=== PATIENT | male | born 1975 | race Caucasian/White ===

== ENCOUNTER 2016-07-18 11:19 | Emergency (ER) | payer BC ==
--- NOTE | 2016-07-18 11:21 | EDM.PDOC ---
ED HPI GENERAL MEDICAL PROBLEM - General Stated Complaint: SICK(WEAK) Time Seen by Provider: 07/18/16 11:40 Source of Information: Reports: Patient History Limitations: Reports: No limitations - History of Present Illness INITIAL COMMENTS - FREE TEXT/NARRATIVE: HISTORY AND PHYSICAL: History of present illness: [41-year-old male with no significant past medical history now complaining of dry cough and cold symptoms as well as bodyache. Patient came to the emergency department referred to dizziness and room spinning which is worse with movement. He has never had a history of vertigo nor does he take medication for this no nausea vomiting or diarrhea no fevers chills sweats or shaking chills. No headache or stiff neck Past medical history: As per history of present illness and as reviewed below otherwise noncontributory. Surgical history: As per history of present illness and as reviewed below otherwise noncontributory. Social history: No reported history of drug or alcohol abuse. Family history: As per history of present illness and as reviewed below otherwise noncontributory. Physical exam: This is reproducible with head movement and positional changes. Patient is awake alert nonfocal neurologically with supple neck. HEENT: Atraumatic, normocephalic, pupils reactive, negative for conjunctival pallor or scleral icterus, mucous membranes moist, throat clear, neck supple, nontender, trachea midline. Lungs: Clear to auscultation, breath sounds equal bilaterally, chest nontender. Heart: S1S2, regular, negative for clicks, rubs, or JVD. Abdomen: Soft, nondistended, nontender. Negative for masses or hepatosplenomegaly. Negative for costovertebral tenderness. Pelvis: Stable nontender. Genitourinary: Deferred. Rectal: Deferred. Extremities: Atraumatic, negative for cords or calf pain. Neurovascular unremarkable. Neuro: Awake, alert, oriented. Cranial nerves II through XII unremarkable. Cerebellum unremarkable. Motor and sensory unremarkable throughout. Exam nonfocal. Diagnostics: [] Therapeutics: [] Impression: [] Plan: [Signs and symptoms consistent with viral syndrome and viral labyrinthitis causing vertiginous symptoms. Patient improved after treatment. He is well- appearing and nonfocal neurologically. No further workup or treatment indicated at this time. Patient ambulating normally with dizziness resolved. He agrees with outpatient followup and strict return precautions were given Definitive disposition and diagnosis as appropriate pending reevaluation and review of above. Headache Pain Score (Numeric/FACES): 10 - Related Data Allergies Allergy/AdvReac Type Severity Reaction Status Date / Time No Known Allergies Allergy Verified 07/18/16 11:39 Home Meds: Home Meds Meclizine [Antivert] 25 mg PO Q6H PRN #24 tablet 07/18/16 [Rx] Past Medical History HEENT History: Reports: None Cardiovascular History: Reports: Hypertension Respiratory History: Reports: None Gastrointestinal History: Reports: None Genitourinary History: Reports: None Musculoskeletal History: Reports: Back pain, chronic, Fracture, Neck pain, chronic, Other (see below) Neurological History: Reports: Other (see below) Other Neuro History: lumbar degenerative disc disease Psychiatric History: Reports: None Endocrine/Metabolic History: Reports: Obesity/BMI 30+ Hematologic History: Reports: None Immunologic History: Reports: None Oncologic (Cancer) History: Reports: None Dermatologic History: Reports: None - Infectious Disease History Infectious Disease History: Reports: Chicken pox - Past Surgical History Head Surgeries/Procedures: Reports: None HEENT Surgical History: Reports: None Cardiovascular Surgical History: Reports: None Respiratory Surgical History: Reports: None GI Surgical History: Reports: None Male Surgical History: Reports: None Endocrine Surgical History: Reports: None Neurological Surgical History: Reports: Laminectomy Musculoskeletal Surgical History: Reports: Arthroscopic knee, ORIF, Other (see below) Other Musculoskeletal Surgeries/Procedures:: ORIF right hand (5th metacarpal bone), hx of right CTR Oncologic Surgical History: Reports: None Dermatological Surgical History: Reports: None Social & Family History - Family History Family Medical History: Noncontributory - Tobacco Use Smoking Status *Q: Current Every Day Smoker (2-3 cigarettes per day only) Years of Tobacco use: 20 Packs/Tins Daily: 1 Used Tobacco, but Quit: No Second Hand Smoke Exposure: Yes - Alcohol Use Days Per Week of Alcohol Use: 6 Number of Drinks Per Day: 8 Total Drinks Per Week: 48 - Recreational Drug Use Recreational Drug Use: No Drug Use in Last 12 Months: No Recreational Drug Type: Reports: Marijuana/Hashish ED ROS GENERAL - Review of Systems Review Of Systems: See Below (History of present illness) ED EXAM, GENERAL - Physical Exam Exam: See Below (History of present illness) Course - Vital Signs Last Recorded V/S: Last Vital Signs Temp 36.7 C 07/18/16 14:00 Pulse 77 07/18/16 14:00 Resp 14 07/18/16 14:00 BP 131/75 07/18/16 14:00 Pulse Ox 92 L 07/18/16 14:00 - Orders/Labs/Meds Orders: Active Orders 24 hr Category Date Time Status EKG Documentation Completion [RC] STAT Care 07/18/16 12:02 Active Peripheral IV Insertion Adult [OM.PC] Stat Oth 07/18/16 12:02 Ordered Labs: Laboratory Tests 07/18/16 07/18/16 07/18/16 Range/Units 12:25 12:25 12:25 WBC 10.08 (4.0-11.0) K/uL RBC 4.89 (4.50-5.90) M/uL Hgb 14.9 (13.0-17.0) g/dL Hct 44.7 (38.0-50.0) % MCV 91.4 (80.0-98.0) fL MCH 30.5 (27.0-32.0) pg MCHC 33.3 (31.0-37.0) g/dL RDW Std Deviation 49.9 (28.0-62.0) fl RDW Coeff of Tu 15 (11.0-15.0) % Plt Count 235 (150-400) K/uL MPV 10.10 (7.40-12.00) fL Neut % (Auto) 59.7 (48.0-80.0) % Lymph % (Auto) 27.3 (16.0-40.0) % Perry % (Auto) 11.3 (0.0-15.0) % Eos % (Auto) 1.2 (0.0-7.0) % Baso % (Auto) 0.5 (0.0-1.5) % Neut # (Auto) 6.0 H (1.4-5.7) K/uL Lymph # (Auto) 2.8 H (0.6-2.4) K/uL Perry # (Auto) 1.1 H (0.0-0.8) K/uL Eos # (Auto) 0.1 (0.0-0.7) K/uL Baso # (Auto) 0.1 (0.0-0.1) K/uL Nucleated RBC % 0.0 /100WBC Nucleated RBCs # 0 K/uL Sodium 142 (136-146) mmol/L Potassium 4.0 (3.5-5.1) mmol/L Chloride 112 H (98-110) mmol/L Carbon Dioxide 19 L (21-31) mmol/L BUN 12 (6.0-23.0) mg/dL Creatinine 0.9 (0.6-1.5) mg/dL Est Cr Clr Drug Dosing 122.07 mL/min Estimated GFR (MDRD) > 60.0 ml/min Glucose 107 (60-110) mg/dL Calcium 9.0 (8.8-10.8) mg/dL Troponin I < 0.10 (0.0-0.29) NG/ML Meds: Medications Discontinued Medications Generic Name Dose Route Start Last Admin Trade Name Freq PRN Reason Stop Dose Admin Sodium Chloride 1,000 mls @ 999 mls/hr 07/18/16 12:02 07/18/16 12:18 Normal Saline IV 07/18/16 13:02 999 mls/hr .Bolus ONE Administration Departure - Departure Time of Disposition: 13:50 Disposition: Home, Self-Care 01 Condition: good Clinical Impression: Viral syndrome, Vertigo Prescriptions: Meclizine [Antivert] 25 mg PO Q6H PRN #24 tablet PRN Reason: Dizziness Instructions: Vertigo, [id number], Viral Respiratory Infection, [id number] Referrals: PCP,None [Primary Care Provider] - Forms: ED Department Discharge Additional Instructions: You have a viral syndrome. Rest drink plenty of fluids and use Motrin and Tylenol as needed for aches pains or fevers. Most likely cause for your dizziness is that your viral syndrome is causing you to have vertigo. If a viral infection causes inflammation in the inner ear this is called labyrinthitis him and it is a very common cause of vertigo. Take meclizine as needed for dizziness and followup with your Dr. in the next day or 2. If your symptoms persist or worsen discussed with your Dr. need for referral for an outpatient CT of your head. If you have any new severe or worsening symptoms feel free to return to the emergency department immediately for reevaluation CAT scanning and any other further workup or treatment needed. - My Orders Last 24 Hours: My Active Orders 07/18/16 12:02 EKG Documentation Completion [RC] STAT Peripheral IV Insertion Adult [OM.PC] Stat - Assessment/Plan Last 24 Hours: My Active Orders 07/18/16 12:02 EKG Documentation Completion [RC] STAT Peripheral IV Insertion Adult [OM.PC] Stat
[2016-07-18] MEDS ORDERED: Sodium Chloride 0.9% 1,000 ML IV ONE (12:02)
[2016-07-18 12:56] LABS: CHLORIDE,CL 112 mmol/L (98-110); SODIUM,NA 142 mmol/L (136-146)
[2016-07-18 14:00] VITALS: BP 131/75
== END 2016-07-18 14:08 | disposition home or self-care (01) ==
LOC: MW.ED 11:19
DX: B34.9 Viral infection, unspecified (principal); R42 Dizziness and giddiness; F17.210 Nicotine dependence, cigarettes, uncomplicated; E66.9 Obesity, unspecified; Z68.31 Body mass index [BMI] 31.0-31.9, adult; Z98.890 Other specified postprocedural states
CPT/HCPCS: 36415; 80048; 84484; 85025; 93005; 96360; 99284; J7040; 99283

== ENCOUNTER 2017-05-01 17:36 | Observation (INO) | payer BC, OTHER ==
[2017-05-01] MEDS ORDERED: Sodium Chloride 0.9% 1,000 ML IV ONE (17:51)
[2017-05-01] MEDS ORDERED: Aspirin 81 MG Tab.Chew PO ONE (17:51)
--- NOTE | 2017-05-01 17:52 | EDM.PDOC ---
ED HPI GENERAL MEDICAL PROBLEM - General Chief Complaint: Chest Pain Stated Complaint: PT HAS CHEST PAINS Time Seen by Provider: 05/01/17 17:52 Source of Information: Reports: Patient - History of Present Illness INITIAL COMMENTS - FREE TEXT/NARRATIVE: HISTORY AND PHYSICAL: History of present illness: [Patient presents with chest pain he rates 7 out of 10 at work seems as if cold air and activity exacerbates chest discomfort, there is certainly a reproducible component as I can reproduce pain with palpation over entire precordium. Pain is not associated with diaphoresis shortness of breath or radiation arm neck or jaw Pain is worse with deep inspiration Patient's pain is relieved after one nitroglycerin tablet the ER for a short period and returns and is now 4 out of 10, on arrival his blood pressure is 200/ 135 this is coming down on his home without treatment to 140s over high 80s, there is some anxiety about health which is improving with reassurance At this time no fever nausea vomiting diarrhea constipation shortness breath headache dizziness or palpitation no bowel or urine symptoms Review of systems: As per history of present illness and below otherwise all systems reviewed and negative. Past medical history: As per history of present illness and as reviewed below otherwise noncontributory. Surgical history: As per history of present illness and as reviewed below otherwise noncontributory. Social history: No reported history of drug or alcohol abuse. Family history: As per history of present illness and as reviewed below otherwise noncontributory. Physical exam: HEENT: Atraumatic, normocephalic, pupils reactive, negative for conjunctival pallor or scleral icterus, mucous membranes moist, throat clear, neck supple, nontender, trachea midline. Lungs: Clear to auscultation, breath sounds equal bilaterally, chest nontender. Heart: S1S2, regular, negative for clicks, rubs, or JVD. Abdomen: Soft, nondistended, nontender. Negative for masses or hepatosplenomegaly. Negative for costovertebral tenderness. Pelvis: Stable nontender. Genitourinary: Deferred. Rectal: Deferred. Extremities: Atraumatic, negative for cords or calf pain. Neurovascular unremarkable. Neuro: Awake, alert, oriented. Cranial nerves II through XII unremarkable. Cerebellum unremarkable. Motor and sensory unremarkable throughout. Exam nonfocal. Diagnostics: [CBC CMP cardiac enzymes Chest 1 view EKG Therapeutics: [Normal saline 1 25 mL per hour Aspirin 324 mg chewable Nitroglycerin 0.4 sublingual ] Impression: [Hypertensive emergency-resolved Abdomen I lysis Dehydration Atypical chest pain Anxiety about health Reproducible chest wall pain] Definitive disposition and diagnosis as appropriate pending reevaluation and review of above. chest Pain Score (Numeric/FACES): 7 - Related Data Allergies Allergy/AdvReac Type Severity Reaction Status Date / Time No Known Allergies Allergy Verified 05/01/17 17:39 Home Meds: Home Meds . [Unable to Verify Home Med List] 05/01/17 [History] Past Medical History - Past Health History Medical/Surgical History: Denies Medical/Surgical History HEENT History: Reports: None Cardiovascular History: Reports: Hypertension Respiratory History: Reports: None Gastrointestinal History: Reports: None Genitourinary History: Reports: None Musculoskeletal History: Reports: Back Pain, Chronic, Fracture, Neck Pain, Chronic, Other (See Below) Neurological History: Reports: Other (See Below) Other Neuro History: lumbar degenerative disc disease Psychiatric History: Reports: None Endocrine/Metabolic History: Reports: Obesity/BMI 30+ Hematologic History: Reports: None Immunologic History: Reports: None Oncologic (Cancer) History: Reports: None Dermatologic History: Reports: None - Infectious Disease History Infectious Disease History: Reports: Chicken Pox - Past Surgical History Head Surgeries/Procedures: Reports: None HEENT Surgical History: Reports: None Cardiovascular Surgical History: Reports: None Respiratory Surgical History: Reports: None GI Surgical History: Reports: None Male Surgical History: Reports: None Endocrine Surgical History: Reports: None Musculoskeletal Surgical History: Reports: Arthroscopic Knee, ORIF, Other (See Below) Oncologic Surgical History: Reports: None Dermatological Surgical History: Reports: None Social & Family History - Family History Family Medical History: Noncontributory - Tobacco Use Smoking Status *Q: Current Every Day Smoker Years of Tobacco use: 23 Packs/Tins Daily: 0.5 Used Tobacco, but Quit: No Second Hand Smoke Exposure: Yes - Caffeine Use Caffeine Use: Reports: Coffee - Alcohol Use Days Per Week of Alcohol Use: 6 Number of Drinks Per Day: 8 Total Drinks Per Week: 48 - Recreational Drug Use Recreational Drug Use: No Drug Use in Last 12 Months: No Recreational Drug Type: Reports: Marijuana/Hashish ED ROS GENERAL - Review of Systems Review Of Systems: ROS reveals no pertinent complaints other than HPI. ED EXAM, GENERAL - Physical Exam Exam: See Below Course - Vital Signs Last Recorded V/S: Last Vital Signs Temp 98.8 F 05/01/17 17:43 Pulse 103 H 05/01/17 17:43 Resp 18 05/01/17 17:43 BP 148/91 H 05/01/17 18:27 Pulse Ox 96 05/01/17 17:43 - Orders/Labs/Meds Orders: Active Orders 24 hr Category Date Time Status EKG Documentation Completion [RC] STAT Care 05/01/17 17:51 Active Chest 1V Frontal [CR] Stat Exams 05/01/17 17:51 Taken DRUG SCREEN, URINE [URCHEM] Stat Lab 05/01/17 18:58 Uncollected INFLUENZA A+B AG SCREEN [RM] Stat Lab 05/01/17 18:57 Uncollected UA W/MICROSCOPIC [URIN] Stat Lab 05/01/17 17:51 Uncollected Nitroglycerin [Nitrostat] Med 05/01/17 18:01 Active 0.4 mg SL Q5M PRN Sodium Chloride 0.9% [Normal Saline] 1,000 ml Med 05/01/17 19:00 Ordered IV STAT Medication Orders Sodium Chloride (Normal Saline) 1,000 mls @ 150 mls/hr IV STAT VANNESA Nitroglycerin (Nitrostat) 0.4 mg SL Q5M PRN PRN Reason: Chest Pain Last Admin: 05/01/17 18:27 Dose: 0.4 mg Labs: Laboratory Tests 05/01/17 05/01/17 Range/Units 18:00 18:00 WBC 5.21 (4.0-11.0) K/uL RBC 5.06 (4.50-5.90) M/uL Hgb 15.8 (13.0-17.0) g/dL Hct 46.3 (38.0-50.0) % MCV 91.5 (80.0-98.0) fL MCH 31.2 (27.0-32.0) pg MCHC 34.1 (31.0-37.0) g/dL RDW Std Deviation 49.0 (28.0-62.0) fl RDW Coeff of Tu 15 (11.0-15.0) % Plt Count 167 (150-400) K/uL MPV 11.00 (7.40-12.00) fL Neut % (Auto) 57.2 (48.0-80.0) % Lymph % (Auto) 25.5 (16.0-40.0) % Cotton % (Auto) 14.4 (0.0-15.0) % Eos % (Auto) 2.1 (0.0-7.0) % Baso % (Auto) 0.8 (0.0-1.5) % Neut # (Auto) 3.0 (1.4-5.7) K/uL Lymph # (Auto) 1.3 (0.6-2.4) K/uL Cotton # (Auto) 0.8 (0.0-0.8) K/uL Eos # (Auto) 0.1 (0.0-0.7) K/uL Baso # (Auto) 0.0 (0.0-0.1) K/uL Nucleated RBC % 0.0 /100WBC Nucleated RBCs # 0 K/uL Sodium 137 (136-146) mmol/L Potassium 4.4 (3.5-5.1) mmol/L Chloride 106 (98-110) mmol/L Carbon Dioxide 20 L (21-31) mmol/L BUN 22 (6.0-23.0) mg/dL Creatinine 1.1 (0.6-1.5) mg/dL Est Cr Clr Drug Dosing TNP Estimated GFR (MDRD) > 60.0 ml/min Glucose 100 (60-110) mg/dL Calcium 9.7 (8.8-10.8) mg/dL Total Bilirubin 0.3 (0.1-1.5) mg/dL AST 54 H (5-40) IU/L ALT 85 H (8-54) IU/L Alkaline Phosphatase 86 (40-150) Creatine Kinase 675 H (9-236) IU/L CK-MB (CK-2) 2.0 (0-6.6) ng/ml Troponin I < 0.10 (0.0-0.29) NG/ML Total Protein 7.6 (6.0-8.0) g/dL Albumin 4.4 (3.5-5.0) g/dL Globulin 3.2 (2.0-3.5) g/dL Albumin/Globulin Ratio 1.4 (1.3-2.8) Amylase 37 (10-90) U/L Lipase 24 (7-80) U/L Meds: Medications Generic Name Dose Route Start Last Admin Trade Name Ashlie PRN Reason Stop Dose Admin Sodium Chloride 1,000 mls @ 150 mls/hr 05/01/17 19:00 Normal Saline IV STAT VANNESA Nitroglycerin 0.4 mg 05/01/17 18:01 05/01/17 18:27 Nitrostat SL 0.4 mg Q5M PRN Administration Chest Pain Discontinued Medications Generic Name Dose Route Start Last Admin Trade Name Ashlie PRN Reason Stop Dose Admin Aspirin 324 mg 05/01/17 17:51 05/01/17 18:25 Aspirin PO 05/01/17 17:52 324 mg ONETIME ONE Administration Sodium Chloride 1,000 mls @ 999 mls/hr 05/01/17 17:51 05/01/17 18:27 Normal Saline IV 05/01/17 18:51 999 mls/hr STAT ONE Administration Departure - Departure Time of Disposition: 18:59 Disposition: Refer to Observation Condition: Fair Clinical Impression: Hypertension, Rhabdomyolysis, Dehydration - Discharge Information Forms: ED Department Discharge - My Orders Last 24 Hours: My Active Orders 05/01/17 17:51 EKG Documentation Completion [RC] STAT Chest 1V Frontal [CR] Stat UA W/MICROSCOPIC [URIN] Stat 05/01/17 18:01 Nitroglycerin [Nitrostat] 0.4 mg SL Q5M PRN 05/01/17 18:57 INFLUENZA A+B AG SCREEN [RM] Stat 05/01/17 18:58 DRUG SCREEN, URINE [URCHEM] Stat 05/01/17 19:00 Sodium Chloride 0.9% [Normal Saline] 1,000 ml IV STAT - Assessment/Plan Last 24 Hours: My Active Orders 05/01/17 17:51 EKG Documentation Completion [RC] STAT Chest 1V Frontal [CR] Stat UA W/MICROSCOPIC [URIN] Stat 05/01/17 18:01 Nitroglycerin [Nitrostat] 0.4 mg SL Q5M PRN 05/01/17 18:57 INFLUENZA A+B AG SCREEN [RM] Stat 05/01/17 18:58 DRUG SCREEN, URINE [URCHEM] Stat 05/01/17 19:00 Sodium Chloride 0.9% [Normal Saline] 1,000 ml IV STAT
[2017-05-01] MEDS ORDERED: Nitroglycerin 0.4 MG Tab.SL SL PRN (18:01)
[2017-05-01 18:43] LABS: CHLORIDE,CL 106 mmol/L (98-110); SODIUM,NA 137 mmol/L (136-146)
[2017-05-01] MEDS ORDERED: Sodium Chloride 0.9% 1,000 ML IV SCH ×2 (19:00→20:15)
--- NOTE | 2017-05-01 19:33 | PCM.HP ---
H&P History of Present Illness - General Date of Service: 05/01/17 Admit Problem/Dx: Admission Diagnosis/Problem Admission Diagnosis/Problem Atypical chest pain Source of Information: Patient History Limitations: Reports: No Limitations - History of Present Illness Initial Comments - Free Text/Narative: 41-year-old male presenting to emergency department with chief complaint of chest pain 2 days with past medical history of hypertension. Patient states that for the past 2 days he's had substernal burning chest pain with associated shortness of breath. It has increased over the past 2 days and is the primary reason for visiting emergency department. He denies any associated nausea, vomiting, diaphoresis or radiation to jaw or arm. Patient is still having chest pain which is reproducible on exam. He did receive 0.4 sublingual nitroglycerin in emergency department which did improve this pain. In addition, his blood pressure was 190/136 when he first presented. After nitroglycerin this dropped to 148/91 and also correlated with his relief of pain. Patient had a similar episode approximately 2 weeks ago where he had substernal chest pain which radiated into his left arm. This episode lasted for approximately 1 hour and was relieved after he took his blood pressure pills and a shower. States the pain was more heavy and sharp then burning. With this episode he had no associated diaphoresis, nausea, vomiting, or palpitations. Patient only has a pmh of hypertension and does not know his medications but will have his bring them. He is a current smoker with a 18 pack yr smoking history. He is adopted and does not know any of his biologic family history. He reports a dry cough for 2 days but no fever, chills, nausea, vomiting, abd pain, dysuria, diarrhea, or sore throat. In the emergency department, CBC was within normal limits, CMP showed mildly elevated AST at 54 and ALT at 85. Patient also had elevated creatinine kinase 675. Initial troponin was negative and ECG showed no signs of acute ischemia. Chest x-ray was unremarkable. He also received 2 L of IV fluid and 0.4 sublingual nitroglycerin while in ED. Patient was admitted for atypical chest pain. chest Pain Score (Numeric/FACES): 7 - Related Data Allergies/Adverse Reactions: Allergies Allergy/AdvReac Type Severity Reaction Status Date / Time No Known Allergies Allergy Verified 05/01/17 17:39 Home Medications: Home Meds . [Unable to Verify Home Med List] 05/01/17 [History] Past Medical History - Past Health History Medical/Surgical History: Denies Medical/Surgical History HEENT History: Reports: None Cardiovascular History: Reports: Hypertension Respiratory History: Reports: None Gastrointestinal History: Reports: None Genitourinary History: Reports: None Musculoskeletal History: Reports: Back Pain, Chronic, Fracture, Neck Pain, Chronic, Other (See Below) Neurological History: Reports: Other (See Below) Other Neuro History: lumbar degenerative disc disease Psychiatric History: Reports: None Endocrine/Metabolic History: Reports: Obesity/BMI 30+ Hematologic History: Reports: None Immunologic History: Reports: None Oncologic (Cancer) History: Reports: None Dermatologic History: Reports: None - Infectious Disease History Infectious Disease History: Reports: Chicken Pox - Past Surgical History Head Surgeries/Procedures: Reports: None HEENT Surgical History: Reports: None Cardiovascular Surgical History: Reports: None Respiratory Surgical History: Reports: None GI Surgical History: Reports: None Male Surgical History: Reports: None Endocrine Surgical History: Reports: None Musculoskeletal Surgical History: Reports: Arthroscopic Knee, ORIF, Other (See Below) Oncologic Surgical History: Reports: None Dermatological Surgical History: Reports: None Social & Family History - Family History Family Medical History: Noncontributory - Tobacco Use Smoking Status *Q: Current Every Day Smoker Years of Tobacco use: 23 Packs/Tins Daily: 0.5 Used Tobacco, but Quit: No Second Hand Smoke Exposure: Yes - Caffeine Use Caffeine Use: Reports: Coffee - Alcohol Use Days Per Week of Alcohol Use: 6 Number of Drinks Per Day: 8 Total Drinks Per Week: 48 - Recreational Drug Use Recreational Drug Use: No Drug Use in Last 12 Months: No Recreational Drug Type: Reports: Marijuana/Hashish H&P Review of Systems - Review of Systems: Review Of Systems: See Below General: Denies: Fever, Chills, Malaise, Weakness, Fatigue HEENT: Denies: Ear Pain, Headaches, Sore Throat Pulmonary: Reports: Shortness of Breath, Pleuritic Chest Pain, Cough. Denies: Wheezing, Sputum, Hemoptysis Cardiovascular: Reports: Chest Pain, Blood Pressure Problem. Denies: Palpitations, Edema Gastrointestinal: Denies: Abdominal Pain, Black Stool, Bloody Stool, Diarrhea, Nausea, Vomiting Genitourinary: Denies: Dysuria, Hematuria Musculoskeletal: Denies: Neck Pain, Leg Pain Skin: Denies: Cyanosis Psychiatric: Denies: Confusion Neurological: Denies: Confusion, Dizziness, Headache Hematologic/Lymphatic: Denies: Anemia Exam - Exam Exam: See Below - Vital Signs Vital Signs: Last Vital Signs Temp 98.8 F 05/01/17 17:43 Pulse 103 H 05/01/17 17:43 Resp 18 05/01/17 17:43 BP 148/91 H 05/01/17 18:27 Pulse Ox 96 05/01/17 17:43 Weight: 102.058 kg - Exam Quality Assessment: DVT Prophylaxis General: Alert, Oriented, Cooperative HEENT: Conjunctiva Clear, EACs Clear, EOMI, Hearing Intact, Mucosa Moist & [place] , Nares Patent, Normal Nasal Septum, Posterior Pharynx Clear, PERRLA Neck: Supple, Trachea Midline, 2 Lungs: Clear to Auscultation, Normal Respiratory Effort Cardiovascular: Regular Rate, Regular Rhythm, Normal S1, Normal S2 GI/Abdominal Exam: Normal Bowel Sounds, Soft, Non-Tender, No Organomegaly, No Distention Back Exam: Normal Inspection, Full Range of Motion, NT Extremities: Normal Inspection, Non-Tender, No Pedal Edema, Normal Capillary Refill Peripheral Pulses: 2+: Radial (L), Radial (R), Posterior Tibial (L), Posterior Tibial (R), Dorsalis Pedis (L), Dorsalis Pedis (R) Skin: Warm, Dry, Intact Neurological: Cranial Nerves Intact Neuro Extensive - Mental Status: Alert, Oriented x3, Normal Mood/Affect, Normal Cognition Neuro Extensive - Motor, Sensory, Reflexes: CN II-XII Intact Psychiatric: Alert, Normal Affect, Normal Mood - Patient Data Lab Results Last 24 hrs: Laboratory Results - last 24 hr 05/01/17 05/01/17 Range/Units 18:00 18:00 WBC 5.21 (4.0-11.0) K/uL RBC 5.06 (4.50-5.90) M/uL Hgb 15.8 (13.0-17.0) g/dL Hct 46.3 (38.0-50.0) % MCV 91.5 (80.0-98.0) fL MCH 31.2 (27.0-32.0) pg MCHC 34.1 (31.0-37.0) g/dL RDW Std Deviation 49.0 (28.0-62.0) fl RDW Coeff of Tu 15 (11.0-15.0) % Plt Count 167 (150-400) K/uL MPV 11.00 (7.40-12.00) fL Neut % (Auto) 57.2 (48.0-80.0) % Lymph % (Auto) 25.5 (16.0-40.0) % [place] % (Auto) 14.4 (0.0-15.0) % Eos % (Auto) 2.1 (0.0-7.0) % Baso % (Auto) 0.8 (0.0-1.5) % Neut # (Auto) 3.0 (1.4-5.7) K/uL Lymph # (Auto) 1.3 (0.6-2.4) K/uL [place] # (Auto) 0.8 (0.0-0.8) K/uL Eos # (Auto) 0.1 (0.0-0.7) K/uL Baso # (Auto) 0.0 (0.0-0.1) K/uL Nucleated RBC % 0.0 /100WBC Nucleated RBCs # 0 K/uL Sodium 137 (136-146) mmol/L Potassium 4.4 (3.5-5.1) mmol/L Chloride 106 (98-110) mmol/L Carbon Dioxide 20 L (21-31) mmol/L BUN 22 (6.0-23.0) mg/dL Creatinine 1.1 (0.6-1.5) mg/dL Est Cr Clr Drug Dosing TNP Estimated GFR (MDRD) > 60.0 ml/min Glucose 100 (60-110) mg/dL Calcium 9.7 (8.8-10.8) mg/dL Total Bilirubin 0.3 (0.1-1.5) mg/dL AST 54 H (5-40) IU/L ALT 85 H (8-54) IU/L Alkaline Phosphatase 86 (40-150) Creatine Kinase 675 H (9-236) IU/L CK-MB (CK-2) 2.0 (0-6.6) ng/ml Troponin I < 0.10 (0.0-0.29) NG/ML Total Protein 7.6 (6.0-8.0) g/dL Albumin 4.4 (3.5-5.0) g/dL Globulin 3.2 (2.0-3.5) g/dL Albumin/Globulin Ratio 1.4 (1.3-2.8) Amylase 37 (10-90) U/L Lipase 24 (7-80) U/L Result Diagrams: 05/01/17 18:00 05/01/17 18:00 *Q Meaningful Use (ADM) - VTE *Q VTE Criteria *Q: - Stroke *Q Stroke Criteria *Q: - AMI *Q AMI Criteria *Q: - Problem List (1) Atypical chest pain SNOMED Code(s): 144466533 ICD Code: R07.89 - OTHER CHEST PAIN Status: Acute Priority: High Current Visit: Yes (2) Hypertension SNOMED Code(s): 04632959 ICD Code: I10 - ESSENTIAL (PRIMARY) HYPERTENSION Status: Acute Priority: High Current Visit: Yes Qualifiers: Hypertension type: unspecified Qualified Code(s): I10 - Essential (primary ) hypertension Problem List Initiated/Reviewed/Updated: Yes Orders Last 24hrs: Active Orders 24 hr Category Date Time Status Admission Status [Patient Status] [ADT] Stat ADT 05/01/17 19:01 Active EKG Documentation Completion [RC] STAT Care 05/01/17 17:51 Active Chest 1V Frontal [CR] Stat Exams 05/01/17 17:51 Taken DRUG SCREEN, URINE [URCHEM] Stat Lab 05/01/17 18:58 Uncollected INFLUENZA A+B AG SCREEN [RM] Stat Lab 05/01/17 18:57 Ordered UA W/MICROSCOPIC [URIN] Stat Lab 05/01/17 17:51 Uncollected Nitroglycerin [Nitrostat] Med 05/01/17 18:01 Active 0.4 mg SL Q5M PRN Sodium Chloride 0.9% [Normal Saline] 1,000 ml Med 05/01/17 19:00 Active IV STAT Medication Orders Sodium Chloride (Normal Saline) 1,000 mls @ 150 mls/hr IV STAT VANNESA Last Admin: 05/01/17 19:31 Dose: 150 mls/hr Nitroglycerin (Nitrostat) 0.4 mg SL Q5M PRN PRN Reason: Chest Pain Last Admin: 05/01/17 18:27 Dose: 0.4 mg Assessment/Plan Comment:: 41-year-old male admitted 05/01/17 for atypical chest pain with past medical history of hypertension. Atypical chest pain: We'll place on telemetry, trend troponin, heart healthy diet, restart home blood pressure medication and monitor closely. Patient did have elevated blood pressure when he first was seen in the emergency department. It is since improved with nitroglycerin. Patient's will bring in the medications which we will verify. He may need adjustments on these medications. He has been seeing Dr. Castrejon and Dr. Hair for his medical care. This is most likely chest wall pain as it is reproducible on exam but with his history 2 weeks ago having a similar episode, 18 yr pk smoker, and no known family history it is somewhat concerning and warrants observation overnight. We did order a urine tox screen which is pending at this time. Rhabdomyolysis: Patient's CK was elevated at 667. This may be secondary to dehydration, patient reports to not drinking much water and mostly coffee. We will IV fluid resuscitate with IV normal saline at 150. Patient did receive 2 L bolus in the ED. Influenza screen is also pending. VTE: SCD, Lovenox Dispo: 1-2 days pending
--- NOTE | 2017-05-01 20:03 | PCM.SN ---
- Free Text/Narrative Note: Influenza screen was positive for Influenza A which also could be contributing to his symptoms. Will start Tamiflu 75mg po BID.
[2017-05-01] MEDS ORDERED: Morphine 10 MG/ML Syringe IVPUSH PRN (20:04)
[2017-05-01] MEDS ORDERED: Ondansetron 4 MG Tab.DIS PO PRN (20:04)
[2017-05-01] MEDS ORDERED: Ondansetron 4 MG/2 ML SDV IVPUSH PRN (20:04)
[2017-05-01] MEDS ORDERED: Acetaminophen 325 MG Tab PO PRN (20:04)
[2017-05-01] MEDS ORDERED: Temazepam 15 MG Cap PO PRN (20:04)
[2017-05-01] MEDS: Enoxaparin 40 MG/0.4 ML Syringe SUBCUT SCH (20:36)
[2017-05-01] MEDS: Oseltamivir 75 MG Cap PO SCH (20:36)
[2017-05-01] MEDS: Fluticasone Propionate Nasal Spray 16 GM Bottle NASBOTH SCH (22:31)
[2017-05-01] MEDS: Hydrochlorothiazide 12.5 MG Cap PO SCH (22:33)
[2017-05-01] MEDS: Lisinopril 10 MG Tab PO SCH (22:34)
[2017-05-01] MEDS: HYDROmorphone 1 MG/ML Syringe IVPUSH PRN (22:54)
[2017-05-02 07:01] LABS: CHLORIDE,CL 106 mmol/L (98-110); SODIUM,NA 136 mmol/L (136-146)
[2017-05-02] MEDS: HYDROmorphone 1 MG/ML Syringe IVPUSH PRN (08:09)
[2017-05-02] MEDS ORDERED: Oxymetazoline 0.05% Nasal Spray 15 ML Bottle NAS SCH (09:00)
[2017-05-02] MEDS ORDERED: FLU Vacc QS 2017-18 (36mos UP)/PF 60 MCG/0.5 ML Syringe IM ONE (09:00)
[2017-05-02] MEDS: Fluticasone Propionate Nasal Spray 16 GM Bottle NASBOTH SCH (09:22)
[2017-05-02] MEDS: Enoxaparin 40 MG/0.4 ML Syringe SUBCUT SCH (09:22)
[2017-05-02] MEDS: Oseltamivir 75 MG Cap PO SCH (09:23)
[2017-05-02] MEDS: Lisinopril 10 MG Tab PO SCH (09:23)
[2017-05-02 09:26] VITALS: BP 133/83
[2017-05-02] MEDS: Hydrochlorothiazide 12.5 MG Cap PO SCH (09:26)
--- NOTE | 2017-05-02 12:06 | PCM.DCSUM1 ---
Discharge Summary - Hospital Course Brief History: 41-year-old male presenting to emergency department with chief complaint of chest pain 2 days with past medical history of hypertension. Patient states that for the past 2 days he's had substernal burning chest pain with associated shortness of breath. It has increased over the past 2 days and is the primary reason for visiting emergency department. He denies any associated nausea, vomiting, diaphoresis or radiation to jaw or arm. Patient is still having chest pain which is reproducible on exam. He did receive 0.4 sublingual nitroglycerin in emergency department which did improve this pain. In addition, his blood pressure was 190/136 when he first presented. After nitroglycerin this dropped to 148/91 and also correlated with his relief of pain. Patient had a similar episode approximately 2 weeks ago where he had substernal chest pain which radiated into his left arm. This episode lasted for approximately 1 hour and was relieved after he took his blood pressure pills and a shower. States the pain was more heavy and sharp then burning. With this episode he had no associated diaphoresis, nausea, vomiting, or palpitations. Patient only has a pmh of hypertension and does not know his medications but will have his bring them. He is a current smoker with a 18 pack yr smoking history. He is adopted and does not know any of his biologic family history. He reports a dry cough for 2 days but no fever, chills, nausea, vomiting, abd pain, dysuria, diarrhea, or sore throat. In the emergency department, CBC was within normal limits, CMP showed mildly elevated AST at 54 and ALT at 85. Patient also had elevated creatinine kinase 675. Initial troponin was negative and ECG showed no signs of acute ischemia. Chest x-ray was unremarkable. He also received 2 L of IV fluid and 0.4 sublingual nitroglycerin while in ED. Patient was admitted for atypical chest pain and influenza positive. - Discharge Data Discharge Date: 05/02/17 Discharge Disposition: Home, Self-Care 01 Condition: Good - Discharge Diagnosis/Problem(s) (1) Influenza A SNOMED Code(s): 631265626 ICD Code: J10.1 - FLU DUE TO OTH IDENT INFLUENZA VIRUS W OTH RESP MANIFEST Status: Acute Current Visit: Yes (2) Atypical chest pain SNOMED Code(s): 975291392 ICD Code: R07.89 - OTHER CHEST PAIN Status: Acute Priority: High Current Visit: Yes (3) Dehydration SNOMED Code(s): 60117060 ICD Code: E86.0 - DEHYDRATION Status: Acute Current Visit: Yes (4) Hypertension SNOMED Code(s): 99298544 ICD Code: I10 - ESSENTIAL (PRIMARY) HYPERTENSION Status: Acute Priority: High Current Visit: Yes Qualifiers: Hypertension type: unspecified Qualified Code(s): I10 - Essential (primary ) hypertension - Patient Instructions Diet: Usual Diet as Tolerated Activity: As Tolerated Showering/Bathing: May Shower Notify Provider of: Fever, Increased Pain, Swelling and Redness, Drainage, Nausea and/or Vomiting - Discharge Plan Prescriptions/Med Rec: Ibuprofen [Motrin] 600 mg PO TID PRN #30 tab PRN Reason: Pain Home Medications: Home Meds Lisinopril/Hydrochlorothiazide [Lisinopril-Hctz 10-12.5 mg Tab] 1 tab PO BID [History] Acetaminophen [Tylenol] 650 mg PO Q4H PRN tablet 05/02/17 [Rx] Fluticasone Propionate [Flonase] 0 gm NASBOTH BID bottle 05/02/17 [Rx] Ibuprofen [Motrin] 600 mg PO TID PRN #30 tab 05/02/17 [Rx] Oseltamivir Phosphate [IJD: Tamiflu] 75 mg PO BID #10 capsule 05/02/17 [Rx] Patient Handouts: Rhabdomyolysis, Influenza, Adult, Ibuprofen tablets and capsules, Dehydration, Adult, [id number], Nonspecific Chest Pain, [id number] Referrals: Monica Chao DO [Physician] - 05/14/17 10:45 am - Discharge Summary/Plan Comment DC Time >30 min.: No Discharge Summary/Plan Comment: Discharge Diagnoses: Atypical chest pain Influenza A positive HTN Foster Acevedo), was admitted and monitored for atypical chest pain. He was found to be influenza positive as well. He was monitored on Telemetry, which showed no acute ischemic changes. Troponins all negative. Chest pain very atypical and noted with palpation to midsternal chest. Likely more musculoskeletal in nature. he was started on Tamiflu 75 mg BID and will be continued on this at home for 4 more days. he is to remain at home with no working until Saturday to allow for adequate rest. He was encouraged to take Tylenol and Motrin for pain, along with staying very hydrated with water and juices, coffee not being one of them. BP was better controlled after starting home medications. He is to see his PCP in 1 week. No stress test recommended at this time due to suspected musculoskeletal pain more than cardiac in nature. he is to return to ED or clinic if concerns should arise. - General Info Date of Service: 05/02/17 Admission Dx/Problem (Free Text: Admission Diagnosis/Problem Admission Diagnosis/Problem Atypical chest pain Subjective Update: Doing well this morning. Still has some pain to midsternal chest with palpation , but is much better. Malaise continues. No other concerns. Functional Status: Reports: Pain Controlled, Tolerating Diet, Ambulating, Urinating - Review of Systems HEENT: Reports: No Symptoms. Denies: Headaches, Sore Throat, Visual Changes Pulmonary: Reports: No Symptoms. Denies: Shortness of Breath Cardiovascular: Reports: Chest Pain (only to palpation to midsternal) Gastrointestinal: Reports: No Symptoms. Denies: Abdominal Pain, Nausea, Vomiting Musculoskeletal: Reports: No Symptoms. Denies: Neck Pain Neurological: Reports: No Symptoms. Denies: Confusion Psychiatric: Reports: No Symptoms. Denies: Confusion - Patient Data Vitals - Most Recent: Last Vital Signs Temp 97.5 F 05/02/17 08:00 Pulse 86 05/02/17 08:00 Resp 18 05/02/17 08:00 BP 133/83 05/02/17 09:23 Pulse Ox 94 L 05/02/17 08:00 Weight - Most Recent: 106.231 kg I&O - Last 24 hours: Intake & Output 05/01/17 05/02/17 05/02/17 22:59 06:59 14:59 Intake Total 1950 1699 Output Total 1250 2370 Balance 700 -671 Lab Results - Last 24 hrs: Laboratory Results - last 24 hr 05/01/17 05/01/17 05/02/17 Range/Units 19:20 19:20 00:20 WBC (4.0-11.0) K/uL RBC (4.50-5.90) M/uL Hgb (13.0-17.0) g/dL Hct (38.0-50.0) % MCV (80.0-98.0) fL MCH (27.0-32.0) pg MCHC (31.0-37.0) g/dL RDW Std Deviation (28.0-62.0) fl RDW Coeff of Tu (11.0-15.0) % Plt Count (150-400) K/uL MPV (7.40-12.00) fL Neut % (Auto) (48.0-80.0) % Lymph % (Auto) (16.0-40.0) % [place] % (Auto) (0.0-15.0) % Eos % (Auto) (0.0-7.0) % Baso % (Auto) (0.0-1.5) % Neut # (Auto) (1.4-5.7) K/uL Lymph # (Auto) (0.6-2.4) K/uL [place] # (Auto) (0.0-0.8) K/uL Eos # (Auto) (0.0-0.7) K/uL Baso # (Auto) (0.0-0.1) K/uL Nucleated RBC % /100WBC Nucleated RBCs # K/uL Sodium (136-146) mmol/L Potassium (3.5-5.1) mmol/L Chloride (98-110) mmol/L Carbon Dioxide (21-31) mmol/L BUN (6.0-23.0) mg/dL Creatinine (0.6-1.5) mg/dL Est Cr Clr Drug Dosing mL/min Estimated GFR (MDRD) ml/min Glucose (60-110) mg/dL Calcium (8.8-10.8) mg/dL Phosphorus (2.4-4.7) mg/dL Magnesium (1.5-2.3) mEq/L Creatine Kinase (9-236) IU/L Troponin I < 0.10 (0.0-0.29) NG/ML Urine Color YELLOW Urine Appearance CLEAR Urine pH 6.0 (5.0-8.0) Ur Specific [place] >= 1.030 (1.001-1.035) Urine Protein NEGATIVE (NEGATIVE) mg/dL Urine Glucose (UA) NEGATIVE (NEGATIVE) mg/dL Urine Ketones NEGATIVE (NEGATIVE) mg/dL Urine Occult Blood NEGATIVE (NEGATIVE) Urine Nitrite NEGATIVE (NEGATIVE) Urine Bilirubin NEGATIVE (NEGATIVE) Urine Urobilinogen 0.2 (<2.0) EU/dL Ur Leukocyte Esterase NEGATIVE (NEGATIVE) Urine RBC 0-1 (0-2/HPF) Urine WBC 0-3 (0-5/HPF) Ur Epithelial Cells RARE (NONE-FEW) Urine Bacteria FEW (NEGATIVE) Urine Opiates Screen NEGATIVE (NEGATIVE) Ur Oxycodone Screen NEGATIVE (NEGATIVE) Urine Methadone Screen NEGATIVE (NEGATIVE) Ur Barbiturates Screen NEGATIVE (NEGATIVE) Ur Phencyclidine Scrn NEGATIVE (NEGATIVE) Ur Amphetamine Screen NEGATIVE (NEGATIVE) U Methamphetamines Scrn NEGATIVE (NEGATIVE) U Benzodiazepines Scrn NEGATIVE (NEGATIVE) U Cocaine Metab Screen NEGATIVE (NEGATIVE) U Marijuana (THC) Screen NEGATIVE (NEGATIVE) 05/02/17 05/02/17 05/02/17 Range/Units 06:25 06:25 06:25 WBC 6.11 (4.0-11.0) K/uL RBC 4.68 (4.50-5.90) M/uL Hgb 14.5 (13.0-17.0) g/dL Hct 42.9 (38.0-50.0) % MCV 91.7 (80.0-98.0) fL MCH 31.0 (27.0-32.0) pg MCHC 33.8 (31.0-37.0) g/dL RDW Std Deviation 48.7 (28.0-62.0) fl RDW Coeff of Tu 14 (11.0-15.0) % Plt Count 141 L (150-400) K/uL MPV 10.90 (7.40-12.00) fL Neut % (Auto) 51.3 (48.0-80.0) % Lymph % (Auto) 31.8 (16.0-40.0) % [place] % (Auto) 14.9 (0.0-15.0) % Eos % (Auto) 1.3 (0.0-7.0) % Baso % (Auto) 0.7 (0.0-1.5) % Neut # (Auto) 3.1 (1.4-5.7) K/uL Lymph # (Auto) 1.9 (0.6-2.4) K/uL [place] # (Auto) 0.9 H (0.0-0.8) K/uL Eos # (Auto) 0.1 (0.0-0.7) K/uL Baso # (Auto) 0.0 (0.0-0.1) K/uL Nucleated RBC % 0.0 /100WBC Nucleated RBCs # 0 K/uL Sodium 136 (136-146) mmol/L Potassium 3.9 (3.5-5.1) mmol/L Chloride 106 (98-110) mmol/L Carbon Dioxide 20 L (21-31) mmol/L BUN 12 (6.0-23.0) mg/dL Creatinine 0.9 (0.6-1.5) mg/dL Est Cr Clr Drug Dosing 122.07 mL/min Estimated GFR (MDRD) > 60.0 ml/min Glucose 99 (60-110) mg/dL Calcium 8.8 (8.8-10.8) mg/dL Phosphorus 3.1 (2.4-4.7) mg/dL Magnesium 1.7 (1.5-2.3) mEq/L Creatine Kinase 538 H (9-236) IU/L Troponin I < 0.10 (0.0-0.29) NG/ML Urine Color Urine Appearance Urine pH (5.0-8.0) Ur Specific [place] (1.001-1.035) Urine Protein (NEGATIVE) mg/dL Urine Glucose (UA) (NEGATIVE) mg/dL Urine Ketones (NEGATIVE) mg/dL Urine Occult Blood (NEGATIVE) Urine Nitrite (NEGATIVE) Urine Bilirubin (NEGATIVE) Urine Urobilinogen (<2.0) EU/dL Ur Leukocyte Esterase (NEGATIVE) Urine RBC (0-2/HPF) Urine WBC (0-5/HPF) Ur Epithelial Cells (NONE-FEW) Urine Bacteria (NEGATIVE) Urine Opiates Screen (NEGATIVE) Ur Oxycodone Screen (NEGATIVE) Urine Methadone Screen (NEGATIVE) Ur Barbiturates Screen (NEGATIVE) Ur Phencyclidine Scrn (NEGATIVE) Ur Amphetamine Screen (NEGATIVE) U Methamphetamines Scrn (NEGATIVE) U Benzodiazepines Scrn (NEGATIVE) U Cocaine Metab Screen (NEGATIVE) U Marijuana (THC) Screen (NEGATIVE) REJI Results - Last 24 hrs: Microbiology 05/01/17 19:35 Influenza Type A Antigen Screen - Final Nasopharyngeal Swab - Nare, Right Positive Influenza A Ag Influenza Type B Antigen Screen - Final NEGATIVE INFLUENZA B VIRUS AG Med Orders - Current: Current Medications Acetaminophen (Tylenol) 650 mg PO Q4H PRN PRN Reason: Pain (Mild 1-3)/fever Enoxaparin Sodium (Lovenox) 40 mg SUBCUT DAILY [facility] Last Admin: 05/02/17 09:22 Dose: 40 mg Fluticasone Propionate (Flonase) 0 gm NASBOTH BID [facility] Last Admin: 05/02/17 09:22 Dose: 1 spray Hydrochlorothiazide (Hydrochlorothiazide) 12.5 mg PO BID [facility] Last Admin: 05/02/17 09:26 Dose: 12.5 mg Hydromorphone HCl (Dilaudid) 1 mg IVPUSH Q2H PRN PRN Reason: Pain Last Admin: 05/02/17 08:09 Dose: 1 mg Sodium Chloride (Normal Saline) 1,000 mls @ 150 mls/hr IV ASDIRECTED [facility] Last Admin: 05/02/17 03:22 Dose: 150 mls/hr Lisinopril (Prinivil) 10 mg PO BID [facility] Last Admin: 05/02/17 09:23 Dose: 10 mg Nitroglycerin (Nitrostat) 0.4 mg SL Q5M PRN PRN Reason: Chest Pain Last Admin: 05/01/17 18:27 Dose: 0.4 mg Ondansetron HCl (Zofran Odt) 4 mg PO Q4H PRN PRN Reason: nausea, able to take PO Ondansetron HCl (Zofran) 4 mg IVPUSH Q4H PRN PRN Reason: Nausea Oseltamivir Phosphate (Tamiflu) 75 mg PO BID [facility] Last Admin: 05/02/17 09:23 Dose: 75 mg Oxymetazoline HCl (Afrin Original 0.05% Nasal [place]) 0 ml FABRIZIO Q12HR [facility] Last Admin: 05/02/17 10:13 Dose: Not Given Temazepam (Restoril) 15 mg PO BEDTIME PRN PRN Reason: Sleep Last Admin: 05/01/17 22:58 Dose: 15 mg Discontinued Medications Aspirin (Aspirin) 324 mg PO ONETIME ONE Stop: 05/01/17 17:52 Last Admin: 05/01/17 18:25 Dose: 324 mg Sodium Chloride (Normal Saline) 1,000 mls @ 999 mls/hr IV STAT ONE Stop: 05/01/17 18:51 Last Admin: 05/01/17 18:27 Dose: 999 mls/hr Sodium Chloride (Normal Saline) 1,000 mls @ 150 mls/hr IV STAT VANNESA Last Admin: 05/01/17 19:31 Dose: 150 mls/hr Influenza Virus Vaccine (Fluarix Quad [id number]) 60 mcg IM .ONCE ONE Stop: 05/02/17 09:01 Last Admin: 05/02/17 11:02 Dose: 60 mcg Morphine Sulfate (Morphine) 2 mg IVPUSH Q2H PRN PRN Reason: Pain (severe 7-10) Stop: 05/02/17 20:07 Last Admin: 05/01/17 20:57 Dose: 2 mg - Exam General: Reports: Alert, Oriented, Cooperative, No Acute Distress Neck: Reports: Supple Lungs: Reports: Clear to Auscultation, Normal Respiratory Effort Cardiovascular: Reports: Regular Rate, Regular Rhythm, Other (scant tenderness midsternally, but much improved from admission. ) Extremities: Normal Inspection, Normal Range of Motion, Non-Tender, No Pedal Edema, Normal Capillary Refill Neurological: Reports: No New Focal Deficit Psy/Mental Status: Reports: Alert, Normal Affect, Normal Mood *Q Meaningful Use (DIS) - VTE *Q VTE Criteria *Q: - Stroke *Q Stroke Criteria *Q: - AMI *Q AMI Criteria *Q:
--- NOTE | 2017-05-02 16:20 | CR ---
EXAM DATE: 05/01/17 PATIENT'S AGE: 41 Patient: GILBERT BONE Facility: [place], [place] Site . Site : 1975 Study: XRay Chest [id number]/17/2018 6:27:35 PM Ordering Physician: Doctor Blanco Final Report: INDICATION: CHEST PAIN, SICK TECHNIQUE: Chest 1 view. COMPARISON: None. FINDINGS: Cardiovascular and mediastinum: Heart size and vasculature are normal in caliber and appearance. Mediastinum is within normal limits. Lungs and pleural space: Lungs are clear. No sign of infiltrate or mass. No sign of pleural effusion. No pneumothorax. Bones and soft tissues: No significant findings. IMPRESSION: Unremarkable chest. Dictated by: Edmond Luu MD @ 05/01/2017 18:51:22 (Electronic Signature) Report Signed by Proxy. [email or web address]
== END 2017-05-02 11:55 | disposition home or self-care (01) ==
LOC: MW.ED 17:36 → MW.MS 19:01 → UNDOADMOB 19:01
PROVIDERS: ADMIT Family Medicine; ATTEND Family Medicine
DX: R07.89 Other chest pain (principal); J10.1 Influenza due to other identified influenza virus with other respiratory manifestations; I10 Essential (primary) hypertension; F17.210 Nicotine dependence, cigarettes, uncomplicated; E86.0 Dehydration; E66.9 Obesity, unspecified; M62.82 Rhabdomyolysis; Z79.899 Other long term (current) drug therapy; Z79.51 Long term (current) use of inhaled steroids; Z68.30 Body mass index [BMI] 30.0-30.9, adult
CPT/HCPCS: 36415; 71045; 80048; 80053; 80305; 81001; 82150; 82550; 82553; 83690; 83735; 84100; 84484; 85025; 87804; 90686; 93005; 96361; 96372; 96374; 96375; 96376; 99285; A9270; G0378; J1170; J1650; J2270; J7040; 96360; 99284; G0008

== ENCOUNTER 2018-08-13 08:20 | Emergency (ER) | payer BC, OTHER ==
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
[2018-08-13 15:29] VITALS: BP 145/83
== END 2018-08-13 10:35 | disposition home or self-care (01) ==
LOC: MW.ED 08:20
DX: S20.211A Contusion of right front wall of thorax, initial encounter (principal); W51.XXXA Accidental striking against or bumped into by another person, initial encounter
CPT/HCPCS: 71101-26-RT; 71101-RT; 99283; 99283-25